=== PATIENT | male | born 1990 | race Caucasian/White ===

== ENCOUNTER 2019-05-04 15:14 | Emergency (ER) | payer OTHER ==
[~2019-05-04] VITALS: Ht 170.2 cm; Wt 68.0 kg
[2019-05-04 15:26] VITALS: BP 124/64
== END 2019-05-04 17:22 | disposition home or self-care (01) ==
LOC: ER 15:14
DX: S76.012A Strain of muscle, fascia and tendon of left hip, initial encounter (principal); S76.011A Strain of muscle, fascia and tendon of right hip, initial encounter; M77.9 Enthesopathy, unspecified; X58.XXXA Exposure to other specified factors, initial encounter; Y93.02 Activity, running; Y92.322 Soccer field as the place of occurrence of the external cause; Y99.8 Other external cause status

== ENCOUNTER 2019-07-01 16:59 | Emergency (ER) | payer SELFPAY ==
[~2019-07-01] VITALS: Ht 172.7 cm; Wt 81.6 kg
[2019-07-01 17:06] VITALS: BP 150/85
[2019-07-01 17:50] LABS: APPEARANCE,URINE Clear (CLEAR); BILIRUBIN,URINE Negative (NEGATIVE); BLOOD, URINE Trace-lysed Ery/uL (NEGATIVE); COLOR,URINE Yellow (YELLOW); KETONES,URINE Negative (NEGATIVE); LEUKOCYTE ESTERASE ,URINE Negative (NEGATIVE); NITRITE, URINE Negative (NEGATIVE); PH,URINE 6.5 (5.0-8.0); PROTEIN,URINE Negative (NEGATIVE); UGLUCOSE Negative (NEGATIVE)
[2019-07-01] MEDS ORDERED: CEFTRIAXONE 500 MG VIAL ONE (17:57)
[2019-07-01] MEDS ORDERED: LIDOCAINE /MPF 1% VIAL 5 ML VIAL ONE (17:57)
[2019-07-01] MEDS ORDERED: AZITHROMYCIN 250 MG TABLET ONE (17:57)
[2019-07-01] MEDS ORDERED: AZITHROMYCIN 250 MG TABLET PO ONE (18:00)
[2019-07-01] MEDS ORDERED: CEFTRIAXONE 500 MG VIAL IM ONE (18:00)
[2019-07-01 18:06] LABS: BACTERIA,URINE Rare /HPF (None Seen); SQUAMOUS EPITHELIAL CELL,UR Few /HPF (None Seen); WBC,URINE NONE SEEN /HPF (0-3)
--- NOTE | 2019-07-01 18:59 | NUR ---
Patient discharged to home in stable condition. Written and verbal after care instructions given. Patient verbalizes understanding of instruction.
== END 2019-07-01 19:00 | disposition home or self-care (01) ==
LOC: ER 17:02
DX: Z20.2 Contact with and (suspected) exposure to infections with a predominantly sexual mode of transmission (principal); Z60.2 Problems related to living alone
CPT/HCPCS: 81001; 87491; 87591; 96372; 99283; J0696; J3490; 81000-TC